=== PATIENT | female | born 2000 | race Caucasian/White ===

== ENCOUNTER → 2023-02-12 | Outpatient (CLI) | payer OTHER ==
[~2023-02-12] MED LIST: HYDHCL25 PO
== END ==
LOC: LAB SHORT 10:40 → LAB 10:40
DX: N39.0 Urinary tract infection, site not specified (principal)
CPT/HCPCS: 87077; 87086; 87186

== ENCOUNTER 2023-03-22 14:08 | Emergency (ER) | payer OTHER ==
[~2023-03-22] VITALS: Ht 157.5 cm; Wt 64.4 kg
[2023-03-22 14:20] VITALS: BP 108/74
[2023-03-22] MEDS ORDERED: ATOMOXETINE HCL80 M3 PO (14:52)
[2023-03-22] MEDS ORDERED: QUET300 PO (14:52)
[2023-03-22] MEDS ORDERED: CLON.2 PO (14:53)
[2023-03-22] MEDS ORDERED: TRAZ50 PO (14:53)
[2023-03-22] MEDS ORDERED: PROP10 PO (14:53)
[2023-03-22 15:21] LABS: BASOPHILS ABSOLUTE AUTO 0.04 K/mm3 (0.00-0.23); BASOPHILS PERCENT AUTO 1 % (0-2); EOSINOPHILS ABSOLUTE AUTO 0.11 K/mm3 (0.00-0.68); EOSINOPHILS PERCENT AUTO 2 % (0-6); Hematocrit 38.6 % (33.0-51.0); Hemoglobin 13.1 g/dL (11.5-16.0); IMMATURE GRAN ABSOLUTE AUTO 0.01 K/mm3 (0.00-0.10); IMMATURE GRAN PERCENT AUTO 0 % (0-1); LYMPHOCYTES ABSOLUTE AUTO 1.49 K/mm3 (0.84-5.20); LYMPHOCYTES PERCENT AUTO 23 % (21-46); MONOCYTES ABSOLUTE AUTO 0.47 K/mm3 (0.16-1.47); MONOCYTES PERCENT AUTO 7 % (4-13); Mean Corpuscular HGB 30.3 pg (26.0-34.0); Mean Corpuscular HGB Conc 33.9 g/dL (31.5-36.5); Mean Corpuscular Volume 89 fL (80-100); Mean Platelet Volume 10.6 fL (9.1-12.4); NEUTROPHILS ABSOLUTE AUTO 4.37 K/mm3 (1.96-9.15); NEUTROPHILS PERCENT AUTO 67 % (41-73); Platelet Count 217 K/mm3 (150-400); RDW Coefficient Variation 11.9 % (11.7-14.2); RDW Standard Deviation 38.5 fL (35.1-46.3); Red Blood Cell Count 4.32 M/mm3 (3.80-5.20); White Blood Cell Count 6.49 K/mm3 (4.00-11.30)
[2023-03-22 15:41] LABS: Ethanol (Alcohol), Blood, Med <3 mg/dL; Salicylate <1.7 mg/dL (2.8-20.0)
[2023-03-22 15:52] LABS: Acetaminophen, Random <2.0 ug/mL (10.0-30.0); Alanine Aminotransfer (ALT/SGP 19 U/L (12-78); Albumin, Blood 4.1 g/dL (3.4-5.0); Albumin/Globulin Ratio 1.3 (0.8-1.8); Alk Phos 48 U/L (50-136); Anion Gap 2 mmol/L (6-16); Aspartate Aminotrans (AST/SGOT 16 U/L (12-37); Bilirubin, Total 0.6 mg/dL (0.1-1.0); Blood Urea Nitrogen 8 mg/dL (8-24); CO2, Blood 27 mmol/L (21-32); Calcium, Blood 8.9 mg/dL (8.5-10.1); Chloride, Blood 109 mmol/L (98-108); Creatinine, Blood 0.53 mg/dL (0.40-1.00); Globulin, Blood 3.2 g/dL (2.2-4.0); Glomerular Filtration Rate 132 (60-); Glucose, Blood 107 mg/dL (70-99); Potassium, Blood 3.5 mmol/L (3.5-5.5); Sodium, Blood 138 mmol/L (136-145); Total Protein, Blood 7.3 g/dL (6.4-8.2)
== END 2023-03-22 17:18 | disposition home or self-care (01) ==
LOC: ER 14:08
PROVIDERS: Physician Assistant
DX: F41.9 Anxiety disorder, unspecified (principal); F32.A Depression, unspecified; Z79.899 Other long term (current) drug therapy
CPT/HCPCS: 36415; 80053; 85025; 93005; 93010; 99285-25; G0480

== ENCOUNTER 2023-05-26 22:57 | Emergency (ER) | payer OTHER ==
[~2023-05-26] VITALS: Ht 157.5 cm; Wt 65.8 kg
[~2023-05-26 22:57] MED LIST changes: +ATOMOXETINE HCL80 M3 PO; +CLON.2 PO; +PROP10 PO; +QUET300 PO; +TRAZ50 PO
[2023-05-26 23:09] VITALS: BP 141/80
== END 2023-05-26 23:50 | disposition home or self-care (01) ==
LOC: ER 22:57
DX: S41.012A Laceration without foreign body of left shoulder, initial encounter (principal); W26.8XXA Contact with other sharp object(s), not elsewhere classified, initial encounter
CPT/HCPCS: 12001; 99282-25

== ENCOUNTER → 2023-11-16 | Outpatient (CLI) | payer OTHER ==
[2023-11-21 23:16] LABS: HPV HIGH RISK BY TMA Detected; HPV SOURCE Cervical
[2023-12-08 10:52] LABS: HPV GENOTYPE 16 BY TMA Not Detected; HPV GENOTYPE 18/45 BY TMA Not Detected; HPVG SOURCE Cervical
== END | disposition home or self-care (01) ==
LOC: LAB 17:22 → LAB SHORT 17:22
PROVIDERS: Family Medicine
DX: Z12.4 Encounter for screening for malignant neoplasm of cervix (principal)
CPT/HCPCS: 87624; 87625; G0123

== ENCOUNTER 2024-05-06 22:21 | Emergency (ER) | payer OTHER ==
[~2024-05-06] VITALS: Ht 160 cm; Wt 81.7 kg
[2024-05-06 22:29] VITALS: BP 135/90
== END 2024-05-07 01:08 | disposition home or self-care (01) ==
LOC: ER 22:21
DX: S51.811A Laceration without foreign body of right forearm, initial encounter (principal); W26.8XXA Contact with other sharp object(s), not elsewhere classified, initial encounter; Z79.899 Other long term (current) drug therapy
CPT/HCPCS: 12002; 99282-25

== ENCOUNTER → 2024-05-16 | Outpatient (CLI) | payer OTHER ==
[2024-05-16 16:02] LABS: Adenovirus F 40/41 Not Detected (NOT DETECT); Astrovirus Not Detected (NOT DETECT); Campylobacter Sp Not Detected (NOT DETECT); Cryptosporidium Not Detected (NOT DETECT); Cyclospora Cayetanensis Not Detected (NOT DETECT); E. Coli O157 Not Detected (NOT DETECT); Entamoeba Histolytica Not Detected (NOT DETECT); Enteroaggregative E. coli-EAEC Not Detected (NOT DETECT); Enteropathogenic E. coli-EPEC Not Detected (NOT DETECT); Enterotoxigenic E. coli-ETEC Not Detected (NOT DETECT); Giardia Lamblia Not Detected (NOT DETECT); Norovirus GI/GII Not Detected (NOT DETECT); Plesiomonas Shigelloides Not Detected (NOT DETECT); Rotavirus A Not Detected (NOT DETECT); Salmonella Sp Not Detected (NOT DETECT); Sapovirus Not Detected (NOT DETECT); Shiga Toxin-prod E. coli-STEC Not Detected (NOT DETECT); Shigella/Enteroin E. coli-EIEC Not Detected (NOT DETECT); Vibrio Cholerae Not Detected (NOT DETECT); Vibrio Sp Not Detected (NOT DETECT); Yersinia Enterocolitica Not Detected (NOT DETECT)
[2024-05-20 09:30] LABS: CALPROTECTIN,FECAL 17 ug/g (<=49)
== END ==
LOC: LAB SHORT 11:02 → LAB 11:02
PROVIDERS: Family Medicine
DX: R19.5 Other fecal abnormalities (principal)
CPT/HCPCS: 83993; 87507

== ENCOUNTER 2024-08-16 20:23 | Emergency (ER) | payer OTHER ==
[~2024-08-16] VITALS: Ht 157.5 cm; Wt 84.8 kg
[2024-08-16 20:32] VITALS: BP 144/104
[2024-08-16 21:50] LABS: BASOPHILS ABSOLUTE AUTO 0.08 K/mm3 (0.00-0.23); BASOPHILS PERCENT AUTO 1 % (0-2); EOSINOPHILS ABSOLUTE AUTO 0.31 K/mm3 (0.00-0.68); EOSINOPHILS PERCENT AUTO 4 % (0-6); Hematocrit 45.3 % (33.0-51.0); Hemoglobin 15.4 g/dL (11.5-16.0); IMMATURE GRAN ABSOLUTE AUTO 0.02 K/mm3 (0.00-0.10); IMMATURE GRAN PERCENT AUTO 0 % (0-1); LYMPHOCYTES ABSOLUTE AUTO 2.71 K/mm3 (0.84-5.20); LYMPHOCYTES PERCENT AUTO 32 % (21-46); MONOCYTES ABSOLUTE AUTO 0.59 K/mm3 (0.16-1.47); MONOCYTES PERCENT AUTO 7 % (4-13); Mean Corpuscular HGB 29.7 pg (26.0-34.0); Mean Corpuscular Volume 87 fL (80-100); Mean Platelet Volume 9.4 fL (9.1-12.4); NEUTROPHILS ABSOLUTE AUTO 4.67 K/mm3 (1.96-9.15); NEUTROPHILS PERCENT AUTO 56 % (41-73); Platelet Count 277 K/mm3 (150-400); RDW Standard Deviation 41.6 fL (35.1-46.3); Red Blood Cell Count 5.19 M/mm3 (3.80-5.20); White Blood Cell Count 8.38 K/mm3 (4.00-11.30)
[2024-08-16 22:08] LABS: Ethanol (Alcohol), Blood, Med 115 mg/dL; Salicylate <1.7 mg/dL (2.8-20.0)
[2024-08-16 22:09] LABS: Acetaminophen, Random <2.0 ug/mL (10.0-30.0); Alanine Aminotransfer (ALT/SGP 25 U/L (12-78); Albumin, Blood 4.2 g/dL (3.4-5.0); Albumin/Globulin Ratio 1.1 (0.8-1.8); Alk Phos 80 U/L (50-136); Anion Gap 9 mmol/L (3-11); Aspartate Aminotrans (AST/SGOT 20 U/L (12-37); Bilirubin, Total 0.3 mg/dL (0.1-1.0); Blood Urea Nitrogen 7 mg/dL (8-24); Bun/Creatinine Ratio 11.1 (12.0-20.0); CO2, Blood 22 mmol/L (21-32); Chloride, Blood 115 mmol/L (98-108); Creatinine, Blood 0.63 mg/dL (0.40-1.00); Globulin, Blood 3.8 g/dL (2.2-4.0); Glomerular Filtration Rate 126 (60-); Glucose, Blood 80 mg/dL (70-99); Potassium, Blood 3.6 mmol/L (3.5-5.5); Sodium, Blood 142 mmol/L (136-145)
[2024-08-16 22:19] LABS: Source, Urine Clean Catch
[2024-08-16 22:23] LABS: Bilirubin, Urine Neg (Neg); Blood, Urine Neg (Neg); Glucose Qualitative, Urine Neg (Neg); Ketones, Urine Neg (Neg); Leukocyte Esterase, Urine 1+ (Neg); Nitrite, Urine Neg (Neg); Protein, Urine Neg (Neg); Urobilinogen, Urine NORM (Normal)
[2024-08-16 22:24] LABS: Appearance, Urine Clear (Clear); Color, Urine Yellow (P-Yellow)
[2024-08-16 22:34] LABS: Red Blood Cells, Urine Not Seen /hpf (0-2); U Amphetamine Screen DETECTED; U Barbituate Screen Not Detected; U Benzodiazapine Screen Not Detected; U Buprenorphine Screen Not Detected; U Cannabinoids Screen Not Detected; U Cocaine Screen Not Detected; U Methadone Screen Not Detected; U Methamphetamine Screen Not Detected; U Opiates Screen Not Detected; U Oxycodone Screen Not Detected; U Phencyclidine Screen Not Detected
[2024-08-16 22:35] LABS: Bacteria Mod /hpf; Squamous Epithelial Cells Few /hpf (Few)
== END 2024-08-16 22:50 | disposition left against medical advice (07) ==
LOC: ER 20:23
PROVIDERS: Student in an Organized Health Care Education/Training Program
DX: S41.111A Laceration without foreign body of right upper arm, initial encounter (principal); Z79.899 Other long term (current) drug therapy; Z91.048 Other nonmedicinal substance allergy status; W45.8XXA Other foreign body or object entering through skin, initial encounter; Z53.29 Procedure and treatment not carried out because of patient's decision for other reasons
CPT/HCPCS: 80053; 80320; 81001; 81025; 85025; 87086; 99282; G0480

== ENCOUNTER 2024-10-27 21:43 | Emergency (ER) | payer OTHER ==
[~2024-10-27] VITALS: Ht 160 cm; Wt 86.2 kg
[2024-10-27 21:49] VITALS: BP 152/93
== END 2024-10-27 22:36 | disposition home or self-care (01) ==
LOC: ER 21:43
DX: Z76.89 Persons encountering health services in other specified circumstances (principal); Z91.048 Other nonmedicinal substance allergy status; Z79.899 Other long term (current) drug therapy
CPT/HCPCS: 99281; A9270

== ENCOUNTER 2025-04-06 21:21 | Emergency (ER) | payer OTHER ==
[~2025-04-06] VITALS: Ht 157.5 cm; Wt 95.2 kg
[2025-04-07 01:01] VITALS: BP 143/91
== END 2025-04-07 01:01 | disposition home or self-care (01) ==
LOC: ER 21:21
DX: S51.811A Laceration without foreign body of right forearm, initial encounter (principal); X78.1XXA Intentional self-harm by knife, initial encounter; Z79.899 Other long term (current) drug therapy
CPT/HCPCS: 12004; 99282